=== PATIENT | female | born 1955 | race American Indian/Alaskan Native ===

== ENCOUNTER → 2016-10-03 | Outpatient (CLI) | payer MEDICARE, OTHER ==
[~2016-10-03] MED LIST: 5-HT1CAP PO; AUGM875T28 PO; CALTTAB11 PO; CELE1CAP4 PO; EXCETAB81 PO; FLON1SPR; GINK120T PO; GLUCTAB13 PO; LOSA25TA8 PO; OMEP40CA2 PO; TYLE325T5 PO; TYLETAB15 PO; VITA100066 PO; [UNRECOGNIZED DRUG - CODE] PO; [UNRECOGNIZED DRUG - CODE] TOP
--- NOTE | 2016-10-03 12:48 | REP ---
THYROID ULTRASOUND: Real-time sonographic evaluation of the thyroid performed and compared to a prior study of 09/15/2015. The right lobe of the thyroid measures 4.7 x 1.5 x 1.1 cm and the left lobe 3.8 x 1.7 x 1.4 cm. Complex nodule in the left lobe is sold and cystic with an area of calcification. A nodule measures approximately 2.3 x 0.8 x 1.4 cm. This is unchanged. IMPRESSION: Stable exam. Signed by Roe Murphy MD 10/04/2016 08:40 A
== END ==
LOC: M RAD 11:20
PROVIDERS: ATTEND Otolaryngology
DX: E04.1 Nontoxic single thyroid nodule (principal)

== ENCOUNTER → 2016-11-07 | Outpatient (CLI) | payer MEDICARE, OTHER ==
--- NOTE | 2016-11-07 15:11 | REP ---
MRI LUMBAR SPINE WITHOUT CONTRAST: 11/07/2016. Clinical history: Back pain, radiculitis. Spinal stenosis. Degenerative disc disease. I do not have prior study at the time of this examination. Technique: Sagittal T1 and T2 STIR images with axial T1 and T2 sequences provided through the lumbar spine. The normal lordosis is maintained on this plant operator helper coronal survey image. There is levoconvex curvature of the lower lumbar spine centered at L3. It has a rotational component based on the axial images. There is disc space narrowing and loss of disc water signal at L3-4 and L4-5 with the other disc spaces maintaining height, but losing water signal. There is no acute compression deformity. Hemangiomas are noted at L1, L5 and tiny hemangiomas at the other levels throughout the lumbar and lower thoracic region included. The conus terminates at upper aspect of L1. The T11-12 and T12-L1 levels show no spinal or foraminal stenosis. At L1-2, there is no disc bulge or herniation and no spinal or foraminal stenosis. At L2-3, posterior osteophytic ridging and small disc bulge which is broad-based noted. This abuts the L3 nerve roots in the central canal, but does not displace them. The foramina are ample with no compression of the L2 roots on either side. Minor hypertrophic facet changes noted. At L3-4, posterior osteophytic ridging associated with broad-based disc bulge. There is ligamentum facet and facet hypertrophy right greater than left and this is contributing to lateral recess stenosis, right greater than left, although the AP canal diameter in the midline is almost 12 mm. The L3 roots, foramina show slight loss of perineural fat, but no nerve root compression. At L4-5, there is also broad-based disc bulge flattening the ventral thecal sac. Ligamentum and facet hypertrophy noted, larger facet spurs on the left than right. These abut and displace the L5 root with some lateral recess stenosis evident, left greater than right. Foraminal encroachment compressing the left L4 root more than right. At L5-S1, there is broad-based disc bulge with central protrusion. The bulge abuts and displaces the left S1 root, but not the right canal. Cross-sectional area of the canal was ample. The foramina show loss of perineural fat and encroachment on the left compared to the right, but no definite nerve root compression. Impression: 1. Degenerative disc disease at multiple levels with posterior osteophytes, ligamentum and facet hypertrophy attributing to some lateral recess stenosis at L3-4, L4-5 and with foraminal encroachment, greatest at L4-5 due to combined factors of facet and marginal osteophytes. 2. Lesser degenerative disc disease at L2-3. No compression fracture. The disc space narrowing and loss of disc water signal are greatest at L3-4 and L4-5. Signed by Dandre Alas MD 11/07/2016 03:53 P
== END ==
LOC: M RAD 13:11
PROVIDERS: ATTEND Nurse Practitioner Family
DX: M51.27 Other intervertebral disc displacement, lumbosacral region (principal); M54.16 Radiculopathy, lumbar region; M51.36 Other intervertebral disc degeneration, lumbar region; M48.06 Spinal stenosis, lumbar region; M47.817 Spondylosis without myelopathy or radiculopathy, lumbosacral region

== ENCOUNTER 2019-01-02 13:01 | Inpatient (IN) | payer OTHER, MEDICARE ==
[~2019-01-02] VITALS: Ht 170.2 cm; Wt 66.0 kg
[~2019-01-02 13:01] MED LIST changes: +LOSA25TA14 PO; -LOSA25TA8 PO; -OMEP40CA2 PO; +OMEP40CA97 PO
[2019-01-02 13:59] LABS: HEMATOCRIT 44.2 % (36.0-47.0); HEMOGLOBIN 14.6 g/dl (12.0-15.5); MEAN CORPUSCULAR HEMOGLOBIN 29.3 pg (27.0-33.0); MEAN CORPUSCULAR VOLUME 88.6 fl (80.0-96.0); PLATELET COUNT, AUTOMATED 276 10^3/uL (150-450); RED BLOOD COUNT 4.99 10^6/uL (4.00-5.40); WHITE BLOOD COUNT 6.9 10^3/uL (4.0-10.0)
[2019-01-02 14:35] LABS: ACETAMINOPHEN LEVEL < 2.0 UG/ML (10.0-30.0); ALBUMIN 4.1 GM/DL (3.2-5.2); ALT/SGPT 26 U/L (12-78); BILIRUBIN,DIRECT < 0.1 MG/DL (0.0-0.2); BILIRUBIN,TOTAL 0.3 MG/DL (0.2-1.0); BLOOD UREA NITROGEN 16 MG/DL (7-18); CALCIUM LEVEL 9.8 MG/DL (8.8-10.2); CARBON DIOXIDE LEVEL 26 MEQ/L (21-32); CHLORIDE LEVEL 107 MEQ/L (98-107); CREATININE FOR GFR 0.72 MG/DL (0.55-1.30); ETHYL ALCOHOL (ETHANOL) < 0.003 % (0.000-0.010); GLOMERULAR FILTRATION RATE > 60.0 (>45); GLUCOSE, FASTING 96 MG/DL (70-100); SALICYLATE LEVEL < 1.7 MG/DL (5.0-30.0); SODIUM LEVEL 141 MEQ/L (136-145); TOTAL PROTEIN 7.3 GM/DL (6.4-8.2)
[2019-01-02 15:17] LABS: AMPHETAMINES LEVEL URINE NEGATIVE (NEGATIVE); BARBITURATES URINE NEGATIVE (NEGATIVE); BENZODIAZEPINES URINE NEGATIVE (NEGATIVE); CANNABINOIDS URINE NEGATIVE (NEGATIVE); COCAINE METABOLITE URINE NEGATIVE (NEGATIVE); METHADONE URINE NEGATIVE (NEGATIVE); OPIATES URINE NEGATIVE (NEGATIVE); PHENCYCLIDINE URINE NEGATIVE (NEGATIVE)
[2019-01-02] MEDS ORDERED: CHOL100029 PO (15:45)
[2019-01-02] MEDS ORDERED: 5-HT1CAP PO (15:45)
[2019-01-02] MEDS ORDERED: EXCETAB33 PO (15:45)
[2019-01-02] MEDS ORDERED: A-10CAP2 PO (15:45)
[2019-01-02] MEDS ORDERED: CALTTAB6 PO (15:45)
[2019-01-02] MEDS ORDERED: [UNRECOGNIZED DRUG - CODE] TOP (15:45)
[2019-01-02] MEDS ORDERED: VITA400C53 PO (15:45)
[2019-01-02] MEDS ORDERED: GINK60CA2 PO (15:45)
[2019-01-02] MEDS ORDERED: AMLO5TAB6 PO (15:45)
[2019-01-02] MEDS ORDERED: OMEP20CA4 PO (15:45)
[2019-01-02] MEDS ORDERED: LUTE40CA2 PO (15:45)
[2019-01-02] MEDS ORDERED: FERR32TA PO (15:45)
[2019-01-02] MEDS ORDERED: ACET-907 PO (15:45)
[2019-01-02] MEDS ORDERED: CELE1CAP4 PO (15:45)
[2019-01-02] MEDS ORDERED: GLUCTAB13 PO (15:45)
[2019-01-02] MEDS ORDERED: FOLI0.4T2 PO (15:45)
[2019-01-02] MEDS ORDERED: LORazepam 1 MG TAB PO PRN (16:15)
[2019-01-02] MEDS ORDERED: ACETAMINOPHEN TAB 650MG DOSE (2X325MG) PO PRN (16:15)
[2019-01-02] MEDS ORDERED: diphenhydrAMINE 25 MG CAP PO PRN (16:15)
[2019-01-02] MEDS ORDERED: HALOPERIDOL 5 MG TAB PO PRN (16:15)
[2019-01-02] MEDS ORDERED: LISINOPRIL 10 MG TAB PO ONE (17:30)
[2019-01-02 21:33] VITALS: BP 150/89
[2019-01-02] MEDS: VITAMIN D 1,000 INTERNATIONAL UNITS TABLET PO SCH (22:21)
[2019-01-02] MEDS: FERROUS GLUCONATE 324 MG TAB PO SCH (22:22)
[2019-01-02] MEDS: CelecoXIB (CeleBREX) 100 MG CAP PO SCH (22:22)
[2019-01-03 06:22] VITALS: BP 152/88
[2019-01-03] MEDS: VITAMIN D 1,000 INTERNATIONAL UNITS TABLET PO SCH ×2 (09:32→21:09)
[2019-01-03] MEDS: VITAMIN A 10,000 INTERNATIONAL UNITS CAP PO SCH (09:32)
[2019-01-03] MEDS: CelecoXIB (CeleBREX) 100 MG CAP PO SCH ×2 (09:32→21:08)
[2019-01-03] MEDS: OMEPRAZOLE 20 MG CAP PO SCH (09:32)
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
[2019-01-03] MEDS: EXCEDRIN MIGRAINE TABLET PO PRN (12:12)
[2019-01-03 18:00] VITALS: BP 145/72
[2019-01-03] MEDS ORDERED: risperiDONE 1 MG TAB PO SCH (21:00)
[2019-01-03] MEDS: FERROUS GLUCONATE 324 MG TAB PO SCH (21:08)
[2019-01-03 21:10] VITALS: BP 141/78
[2019-01-04 06:43] VITALS: BP 122/77
[2019-01-04] MEDS: EXCEDRIN MIGRAINE TABLET PO PRN (07:43)
[2019-01-04] MEDS ORDERED: RISP1TAB42 PO (09:23)
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
[2019-01-04] MEDS: CelecoXIB (CeleBREX) 100 MG CAP PO SCH (09:34)
[2019-01-04] MEDS: VITAMIN A 10,000 INTERNATIONAL UNITS CAP PO SCH (09:34)
[2019-01-04] MEDS: VITAMIN D 1,000 INTERNATIONAL UNITS TABLET PO SCH (09:34)
[2019-01-04] MEDS: OMEPRAZOLE 20 MG CAP PO SCH (09:34)
== END 2019-01-04 11:46 | disposition home or self-care (01) | DRG 885 ==
LOC: M ED 13:01 → M ED INP 16:03 → M PSY 20:03
PROVIDERS: ADMIT Psychiatry & Neurology Addiction Medicine; ATTEND Psychiatry & Neurology Psychiatry
DX: F22 Delusional disorders (principal); Z62.810 Personal history of physical and sexual abuse in childhood; Z62.811 Personal history of psychological abuse in childhood; Z79.899 Other long term (current) drug therapy

== ENCOUNTER → 2021-09-20 | Outpatient (CLI) | payer OTHER ==
[~2021-09-20] MED LIST changes: +A-10CAP2 PO; +ACET-907 PO; +AMLO1TAB24 PO; +CALTTAB6 PO; +CHOL100029 PO; +EXCETAB32 PO; +FERR32TA PO; +FOLI400T5 PO; +GINK60CA2 PO; +LOSA25TA13 PO; -LOSA25TA14 PO; +LUTE40CA2 PO; +OMEP1CAP73 PO; +OMEP40CA4 PO; -OMEP40CA97 PO; +RISP1TAB42 PO; +VITA400C53 PO
== END ==
LOC: M WHC 14:12
PROVIDERS: ATTEND Family Medicine
DX: Z12.31 Encounter for screening mammogram for malignant neoplasm of breast (principal)

== ENCOUNTER 2022-07-12 08:31 | Day surgery (SDC) | payer MEDICARE, OTHER ==
[~2022-07-12] VITALS: Ht 167.6 cm; Wt 64.1 kg
[~2022-07-12 08:31] MED LIST changes: +AMLO2.5T3 PO; +B-12100010 PO; +COQ150CH PO; +CRAN450T4 PO; +CYCLOPENTOLATE 1% OPHTH SOLN 2ML BTL OD SCH; +FOLI1TAB11 PO; +GLUC1TAB PO; +GNP1000T11 PO; +HYAL60CA PO; +LIDOCAINE 1% SDV 5ML VIAL As Ordered ONE; +MSM500CA4 PO; +OFLOXACIN 0.3 % (OCUFLOX) OPTH SOL 5ML OD SCH; +OMEP-173 PO; +OPTI400C PO; +PHENYLEPHRINE 2.5% OPHTH SOL 2ML OD SCH; +PROPARACAINE 0.5% OPHTH SOL 15ML OD ONE; +RA N1TAB PO; +ROPI0.253 PO; +ROPI1TAB3 PO; +TOBRADEX OPHTH OINT 3.5 GM As Ordered ONE; +TROPICAMIDE 1% OPHTH SOLN 15ML OD SCH; +[UNRECOGNIZED DRUG - CODE] MC; +[UNRECOGNIZED DRUG - OTHER] PO
[2022-07-12] MEDS ORDERED: EPINEPHrine INJ 1 MG/ML 1ML AMP As Ordered ONE (09:55)
[2022-07-12] MEDS ORDERED: DUOVISC (0.50ML VISCOAT/0.85ML PROVISC) OPHTH KIT As Ordered ONE (10:13)
[2022-07-12] MEDS ORDERED: TRYPAN BLUE 0.06 % 2.25 ML OPHTH SYR (VISIONBLUE) As Ordered ONE (10:37)
[2022-07-12 11:02] VITALS: BP 130/81
[2022-07-12] MEDS ORDERED: MIDAZOLAM INJ 2MG/2ML VIAL As Ordered ONE (11:04)
[2022-07-12] MEDS ORDERED: fentaNYL 100 MCG/2 ML INJECTION As Ordered ONE (11:04)
== END 2022-07-12 11:20 | disposition home or self-care (01) ==
LOC: M SDC 08:31
PROVIDERS: ATTEND Ophthalmology
DX: H25.11 Age-related nuclear cataract, right eye (principal); H40.1110 Primary open-angle glaucoma, right eye, stage unspecified; I10 Essential (primary) hypertension; E78.5 Hyperlipidemia, unspecified; Z88.1 Allergy status to other antibiotic agents; Z88.8 Allergy status to other drugs, medicaments and biological substances; Z79.899 Other long term (current) drug therapy; Z87.891 Personal history of nicotine dependence; J44.9 Chronic obstructive pulmonary disease, unspecified
CPT/HCPCS: 65820; 66984; C1889; J0171; J2250; J3010; V2632

== ENCOUNTER 2022-10-04 07:36 | Day surgery (SDC) | payer MEDICARE, OTHER ==
[~2022-10-04] VITALS: Ht 170.2 cm; Wt 63.3 kg
[~2022-10-04 07:36] MED LIST changes: +BSS IRR 500ML/OMIDRIA 4ML IRR BAG (OR ONLY) As Ordered ONE; +CEFUROXIME 1MG/0.1ML INTRACAMERAL INJ As Ordered ONE; -CYCLOPENTOLATE 1% OPHTH SOLN 2ML BTL OD SCH; +CYCLOPENTOLATE 1% OPHTH SOLN 2ML BTL OS SCH; +OCUVTAB8 PO; -OFLOXACIN 0.3 % (OCUFLOX) OPTH SOL 5ML OD SCH; +OFLOXACIN 0.3 % (OCUFLOX) OPTH SOL 5ML OS SCH; -PHENYLEPHRINE 2.5% OPHTH SOL 2ML OD SCH; +PHENYLEPHRINE 2.5% OPHTH SOL 2ML OS SCH; -PROPARACAINE 0.5% OPHTH SOL 15ML OD ONE; +PROPARACAINE 0.5% OPHTH SOL 15ML OS ONE; -ROPI0.253 PO; -ROPI1TAB3 PO; +ROPI1TAB73 PO; +ROPI5TAB19 PO; -TOBRADEX OPHTH OINT 3.5 GM As Ordered ONE; -TROPICAMIDE 1% OPHTH SOLN 15ML OD SCH; +TROPICAMIDE 1% OPHTH SOLN 15ML OS SCH
[2022-10-04] MEDS ORDERED: MIDAZOLAM INJ 2MG/2ML VIAL As Ordered ONE (09:31)
[2022-10-04] MEDS ORDERED: fentaNYL 100 MCG/2 ML INJECTION As Ordered ONE (09:31)
[2022-10-04 09:56] VITALS: BP 164/95; TEMP 97.7; O2SAT 99
== END 2022-10-04 10:25 | disposition home or self-care (01) ==
LOC: M SDC 07:36
PROVIDERS: ATTEND Ophthalmology
DX: H25.12 Age-related nuclear cataract, left eye (principal); I10 Essential (primary) hypertension; E78.5 Hyperlipidemia, unspecified; Z87.891 Personal history of nicotine dependence; Z88.1 Allergy status to other antibiotic agents; Z88.8 Allergy status to other drugs, medicaments and biological substances; Z79.899 Other long term (current) drug therapy
CPT/HCPCS: 66984; J0697; J1097; J2250; J3010; V2632

== ENCOUNTER → 2022-10-14 | Outpatient (CLI) | payer MEDICARE, OTHER ==
[~2022-10-14] MED LIST changes: -BSS IRR 500ML/OMIDRIA 4ML IRR BAG (OR ONLY) As Ordered ONE; -CEFUROXIME 1MG/0.1ML INTRACAMERAL INJ As Ordered ONE; -CYCLOPENTOLATE 1% OPHTH SOLN 2ML BTL OS SCH; -LIDOCAINE 1% SDV 5ML VIAL As Ordered ONE; -OFLOXACIN 0.3 % (OCUFLOX) OPTH SOL 5ML OS SCH; -PHENYLEPHRINE 2.5% OPHTH SOL 2ML OS SCH; -PROPARACAINE 0.5% OPHTH SOL 15ML OS ONE; -TROPICAMIDE 1% OPHTH SOLN 15ML OS SCH
== END ==
LOC: M WHC 11:30
PROVIDERS: ATTEND Family Medicine
DX: Z12.31 Encounter for screening mammogram for malignant neoplasm of breast (principal)

== ENCOUNTER → 2023-10-19 | Outpatient (CLI) | payer MEDICARE, OTHER | LOC: M WHC 12:27 | PROVIDERS: ATTEND Family Medicine | DX: Z12.31 Encounter for screening mammogram for malignant neoplasm of breast (principal); R92.313 Mammographic fatty tissue density, bilateral breasts ==

== ENCOUNTER 2024-10-15 10:31 | Emergency (ER) | payer OTHER, MEDICARE ==
[~2024-10-15] VITALS: Ht 170.2 cm; Wt 61.4 kg
[2024-10-15 10:47] VITALS: TEMP 97.9
[2024-10-15 10:58] LABS: BASO # 0.1 10^3/uL (0.0-0.2); BASO % 0.9 % (0.0-1.0); EOS # 0.1 10^3/uL (0.0-0.5); EOS % 0.7 % (0.0-3.0); LYMPH # 1.8 10^3/uL (1.5-5.0); LYMPH % 25.9 % (24.0-44.0); MONO # 0.7 10^3/uL (0.0-0.8); MONO % 9.2 % (2.0-8.0); NEUTROPHILS # 4.4 10^3/uL (1.5-8.5); NEUTROPHILS % 63.0 % (36.0-66.0); PLATELET COUNT, AUTOMATED 234 10^3/uL (150-450)
[2024-10-15] MEDS: PERCOCET 5MG/325MG TAB PO ONE (11:15)
[2024-10-15 11:19] LABS: CPK CREATINE PHOSPHOKINASE 187 U/L (34-145)
[2024-10-15 11:20] LABS: ALT/SGPT 24 U/L (7.0-40); AST/SGOT 27 U/L (<34); CALCIUM LEVEL 8.8 MG/DL (8.3-10.6); CARBON DIOXIDE LEVEL 24 MMOL/L (20-31); CHLORIDE LEVEL 108 MMOL/L (98-107); CK-MB VALUE MASS 3.0 NG/ML (<3.6); CREATININE FOR GFR 0.63 MG/DL (0.55-1.30); GLOMERULAR FILTRATION RATE > 90.0 (>39); MB/CK RELATIVE INDEX 1.60 (< OR =4); POTASSIUM SERUM 3.6 MMOL/L (3.5-5.1); SODIUM LEVEL 144 MMOL/L (136-145)
[2024-10-15] MEDS ORDERED: ISOVUE-370 76% 100 ML VIAL As Ordered ONE (11:40)
[2024-10-15 12:44] LABS: CK-MB VALUE MASS 2.5 NG/ML (<3.6)
[2024-10-15 12:45] LABS: CPK CREATINE PHOSPHOKINASE 158.0 U/L (34-145); MB/CK RELATIVE INDEX 1.58 (< OR =4)
[2024-10-15 13:30] VITALS: BP 157/92
[2024-10-15 13:31] VITALS: O2SAT 98
== END 2024-10-15 14:13 | disposition home or self-care (01) ==
LOC: EDBD 10:31 → M ED 11:26
DX: R07.9 Chest pain, unspecified (principal); I44.0 Atrioventricular block, first degree; F20.9 Schizophrenia, unspecified; Z88.1 Allergy status to other antibiotic agents; Z88.8 Allergy status to other drugs, medicaments and biological substances; Z79.1 Long term (current) use of non-steroidal anti-inflammatories (NSAID); Z79.899 Other long term (current) drug therapy; Z79.810 Long term (current) use of selective estrogen receptor modulators (SERMs)
CPT/HCPCS: 36415; 71045; 71275; 80048; 80076; 82550; 82553; 83690; 84443; 84484; 85025; 87486; 87581; 87633; 87798; 93005; 93041; 94760; 99285; Q9967

== ENCOUNTER → 2024-11-08 | Outpatient (CLI) | payer MEDICARE, OTHER | LOC: M WHC 12:42 | PROVIDERS: ATTEND Family Medicine | DX: Z12.31 Encounter for screening mammogram for malignant neoplasm of breast (principal); R92.313 Mammographic fatty tissue density, bilateral breasts ==